=== PATIENT | male | born 1955 | race Caucasian/White ===

== ENCOUNTER → 2025-04-24 | Day surgery (SDC) | payer MEDICARE, OTHER ==
[2025-04-18 12:26] LABS: BASOPHILS % 0.5 % (0.0-1.0); EOSINOPHILS % 2.9 % (0.0-6.0); LYMPHOCYTES % 36.6 % (18.0-39.1); MONOCYTES % 11.2 % (4.4-11.3); NEUTROPHILS % 48.6 % (38.7-80.0); RED CELL DISTRIBUTION WIDTH 13.6 % (11.7-14.4)
[2025-04-18 12:48] LABS: EST GLOMERULAR FILTRATION RATE 76.0 ML/MIN (>=60)
[2025-04-18 13:12] LABS: CORONAVIRUS COVID-19 AG NEGATIVE (NEGATIVE)
[~2025-04-24] MED LIST: DAILY VALUE1 EACH; DEXAMETHASONE SOD PHOS INJ 4 MG/ML SDV ONE; FENTANYL CITRATE/PF 100MCG/2 ML INJ ONE; FINASTERIDE5 MG PO; FLOMAX0.4 MG PO; FUROSEMIDE40 MG PO; KETOROLAC TROMETHAMINE 30 MG/ML VIAL ONE; MIDAZOLAM HCL 2 MG/2 ML VIAL ONE; ONDANSETRON HCL INJ 2MG/ML 2ML 2 MG/ML VIAL ONE; PROPOFOL IV EMULSION 10 MG/ML 20 ML VIAL ONE; SEVOFLURANE INHAL SOLN 250 ML PEN BTL ONE; SUCCINYLCHOLINE CHLORIDE 20 MG/ML 10ML VIAL ONE
[2025-04-24] MEDS: CEFTRIAXONE 1 GM VIAL ONE (06:27)
[2025-04-24] MEDS: SODIUM CHLORIDE 0.9% 1000ML 1,000 ML ONE (06:27)
[2025-04-24 09:00] VITALS: TEMP 96.9
[2025-04-24 09:50] VITALS: BP 140/89; PULSE 81; RESP 18; O2SAT 97
== END | disposition home or self-care (01) ==
LOC: OR 05:41
PROVIDERS: ATTEND Urology
DX: N43.3 Hydrocele, unspecified (principal); N50.89 Other specified disorders of the male genital organs; N39.0 Urinary tract infection, site not specified; M79.89 Other specified soft tissue disorders; Z01.810 Encounter for preprocedural cardiovascular examination; Z01.812 Encounter for preprocedural laboratory examination; Z01.818 Encounter for other preprocedural examination; Z11.52 Encounter for screening for COVID-19; Z79.899 Other long term (current) drug therapy; Z87.891 Personal history of nicotine dependence
CPT/HCPCS: 36415; 55041; 55175; 71046; 80048; 85025; 87426; 88304; 93005; J0330; J0696; J1100; J1885; J2250; J2405; J2704; J3010; J7030